=== PATIENT | male | born 1945 | race Caucasian/White ===

== ENCOUNTER 2020-07-30 22:09 | Emergency (ER) | payer OTHER, BC ==
[~2020-07-30] VITALS: Ht 185.4 cm; Wt 86.2 kg
[2020-07-30 23:30] VITALS: BP 160/81
[2020-07-31] MEDS ORDERED: HYDROCODONE/APAP 10/325MG TABLET ONE (00:35)
[2020-07-31] MEDS ORDERED: ONDANSETRON 4 MG TAB.RAPDIS ONE (00:35)
[2020-07-31] MEDS: ONDANSETRON 4 MG TAB.RAPDIS SL ONE (00:40)
[2020-07-31] MEDS: HYDROCODONE/APAP 10/325MG TABLET PO ONE (00:40)
--- NOTE | 2020-07-31 00:59 | NUR ---
Patient discharged to home in stable condition. Written and verbal after care instructions given. Patient verbalizes understanding of instruction. ambulatory with a steady gait noted. advice pt not to drive or operate any machinery due to pt was given narcotic medicine. pt verbalize understanding.
== END 2020-07-31 01:02 | disposition home or self-care (01) ==
LOC: ER 22:14
DX: S52.531A Colles' fracture of right radius, initial encounter for closed fracture (principal); J44.9 Chronic obstructive pulmonary disease, unspecified; Z88.0 Allergy status to penicillin; W18.39XA Other fall on same level, initial encounter; Y93.89 Activity, other specified; Y92.89 Other specified places as the place of occurrence of the external cause; Y99.8 Other external cause status
CPT/HCPCS: 29125; 73110; 99283; Q0162